=== PATIENT | female | born 1995 | race Caucasian/White ===

== ENCOUNTER 2019-05-16 02:12 | Emergency (ER) | payer BC ==
[2019-05-16] MEDS ORDERED: MORPHINE SULFATE 2 MG/ML VIAL IV ONE (02:25)
[2019-05-16] MEDS ORDERED: ONDANSETRON HCL/PF 4 MG/ 2ML VIAL IVP ONE (02:25)
[2019-05-16] MEDS ORDERED: 0.9 % SODIUM CHLORIDE 1,000 ML IV ONE (02:25)
--- NOTE | 2019-05-16 02:33 | ED Physician Documentation ---
Abdominal Pain - HISTORIAN Historian: patient - HPI Stated Complaint: abd pain Chief Complaint: Abdominal Pain Additonal Information: 23 year old female presents to the ER with c/o lower abdominal pain. She is currently in the process of transitioning to a male; currently on testosterone. She was not able to work today due to not feeling well-nausea. Around 21:30 tonight she developed lower abdominal pain that she describes as sharp. Feels better when she is sitting up with knees to her chest. She states that the pain causes her to feel nauseas. Onset: hours Duration: sudden-onset Timing: still present Context: denies: bad food (last ate at [employer]) Severity: moderate Quality: cramping, sharp Associated Symptoms: fever (low grade temp), nausea, vomiting Exacerbated by: movements Relieved by: upright position - ROS CONST: no problems GI/: none CVS/RESP: none EYES/ENT: none MS/SKIN/LYMPH: none NEURO/PSYCH: none - SOCIAL HX Smoking History: non-smoker Alcohol Use: none Drug Use: none - FAMILY HX Family History: none - PAST HX Past History: none Ischemic Bowel Risk Factors: none Other History: none Surgeries/Procedures: none Immunizations: UTD Home Medications: Ambulatory Orders Medication Instructions Recorded Testosterone Cypionate 0.5 ml IM WEEK 05/16/19 [Depo-Testosterone] Allergies/Adverse Reactions: Allergies Allergy/AdvReac Type Severity Reaction Status Date / Time Penicillins Allergy Unknown Verified 05/16/19 03:24 - VITAL SIGNS Vital Signs: Vital Signs Temp Pulse Resp BP Pulse Ox 100.1 F H 93 H 18 148/88 100 05/16/19 02:20 05/16/19 02:20 05/16/19 02:20 05/16/19 02:20 05/16/19 02:20 - REVIEWED ASSESSMENTS Nursing Assessment Reviewed: Yes Vitals Reviewed: Yes Progress - Progress Progress: 03:45 patient feeling much better. ED Results Lab/Radiology - Radiology Radiology Impressions: Computed tomography abdomen pelvis with contrast History: Low abdominal pain, leukocytosis, fever Findings: Transverse abdomen and pelvis sections are obtained after 90 mL intravenous Omnipaque 350. A calcified left lung granuloma is noted. The kidneys, adrenals, spleen, pancreas, liver, great vessels, mesenteric structures, and bowel loops are unremarkable. The gallbladder is partially contracted. 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 Small mesenteric lymph nodes are likely of no significance. Pelvic sections reveal unremarkable bowel loops including a normal appendix. The uterus and ovaries are normal in size. The urinary bladder is unremarkable. There is no free fluid or pelvic inflammation. Impression: Partial gallbladder contraction, normal appendix, and left L5 pars defect. Electronically signed on May 16, 2019 3:24:30 AM TIP STITCHER by: Alexei Rasmussen - Orders Orders: ED Orders Category Date Time Status Place IV Lock 1T Care 05/16/19 02:[address] ABDOMEN PELVIS C [CT ABD & PELVIS W/ CON] Stat Exams 05/16/19 Completed CBC/PLATELET/DIFF Stat Lab 05/16/19 02:40 Received CMP Stat Lab 05/16/19 02:40 Received LIPASE Stat Lab 05/16/19 02:40 Received 0.9 % Sodium Chloride [Normal Saline] 1,000 ml Med 05/16/19 02:25 Discontinued IV Q1H Morphine Sulfate Med 05/16/19 02:25 Discontinued 2 mg IV NOW ONE Morphine Sulfate Med 05/16/19 03:12 Discontinued 4 mg .ROUTE .STK-MED ONE Ondansetron HCl/Pf [Zofran] Med 05/16/19 02:25 Discontinued 4 mg IVP NOW ONE Abdominal Pain Physical Exam - Physical Exam General Appearance: alert, mild distress EENT: eye inspection normal, ENT inspection normal, pharynx normal, no signs of dehydration, JOEL NECK: normal inspection RESPIRATORY: breath sounds normal CVS: heart sounds normal ABDOMEN: soft, normal bowel sounds, tenderness SKIN: warm/dry, normal color EXTREMITIES: normal range of motion NEURO: oriented X3, CN's nml as tested, motor nml, sensation nml, mood/affect nml, cognition normal Vital Signs: Vital Signs Temp Pulse Resp BP Pulse Ox 100.1 F H 93 H 18 148/88 100 05/16/19 02:20 05/16/19 02:20 05/16/19 02:20 05/16/19 02:20 05/16/19 02:20 Discharge Clincal Impression: Abdominal pain Referrals: Primary Doctor,No [Primary Care Provider] - 2 Days Additional Instructions: Increase water intake Start with clear liquids and advance diet as tolerated- [place] diet Use "3 Day Cleanse" at [facility] Zofran 4 mg by mouth every 6 hours as needed for nausea Follow up with PCP as needed Condition: Good Disposition: 01 HOME, SELF-CARE Decision to Admit: NO Decision Time: 03:56
[2019-05-16 02:34] VITALS: BP 148/88
[2019-05-16] MEDS ORDERED: MORPHINE SULFATE 4 MG/ML VIAL ONE (03:12)
--- NOTE | 2019-05-16 03:28 | Diagnostic Imaging Report ---
PATIENT MR#: [id number] PATIENT PATIENT NAME: SUE SHEIKH DATE OF : 1995 REFERRING PHYSICIAN: Carmen Ortiz EXAM DATE: 05/16/2019 ACCESSION NUMBER: [id number] EXAM DESCRIPTION: CT ABD PELVIS W/ CON Computed tomography abdomen pelvis with contrast History: Low abdominal pain, leukocytosis, fever Findings: Transverse abdomen and pelvis sections are obtained after 90 mL intravenous Omnipaque 350. A calcified left lung granuloma is noted. The kidneys, adrenals, spleen, pancreas, liver, great vess els, mesenteric structures, and bowel loops are unremarkable. The gallbladder is partially contracted. Left L5 spon dylolysis is observed. Small mesenteric lymph nodes are likely of no significance. Pelvic sections reveal unremarkable bowel loops including a normal appendix. The uterus and ovaries are normal in size. The urinary bladder is unremarkable. There is no free fluid or pelvic inflammation. Impression: Partial gallbladder contraction, normal appendix, and left L5 pars defect. Read by: Dr. Kahlli Rasmussen Transcribed by: Transcribed Date: Electronically signed by: Dr. Kahlil Rasmussen Date signed: 05/16/2019 3:27:35 AM
[2019-05-16 06:21] LABS: APPEARANCE,URINE CLEAR (CLEAR); COLOR,URINE YELLOW (YELLOW); OCCULT BLOOD,URINE NEGATIVE (NEGATIVE); PH URINE 7.5 (5.0 - 8.0); UROBILINOGEN URINE 0.2 Eu (0.2-1.0)
[2019-05-16 08:43] LABS: eGFR (Non-African) > 60
[2019-05-16 08:45] LABS: BASOPHILS % 0.8 % (0.0-1.5); NEUTROPHILS # 15.5 # k/uL (1.4-7.7)
== END 2019-05-16 04:00 | disposition home or self-care (01) ==
LOC: ED 02:12
DX: R10.30 Lower abdominal pain, unspecified (principal); R50.9 Fever, unspecified; R11.2 Nausea with vomiting, unspecified
CPT/HCPCS: 74177; 80053; 81002; 83690; 85025; 96361; 96374; 99284; J2270; J2405; J7030; Q9967; S1016